=== PATIENT | female | born 1945 | race Caucasian/White ===

== ENCOUNTER 2020-05-19 14:10 | Emergency (ER) | payer MEDICARE ==
[~2020-05-19 14:10] MED LIST: HYDROCHLOROTHIA25 MG PO; LEVOTHYROXINE75 MCG PO; LIPITOR TAB 1010 MG PO; OMNICEF 300 MG300 MG PO; PRINIVIL20 MG PO; RANITIDINE HCL300 MG PO; SYMMETREL 100100 MG PO; VISTARIL25 MG PO
== END 2020-05-19 22:12 | disposition home or self-care (01) ==
LOC: ER1 14:10
DX: R51.9 Headache, unspecified (principal); M25.551 Pain in right hip; J45.909 Unspecified asthma, uncomplicated; Z88.8 Allergy status to other drugs, medicaments and biological substances; Z90.49 Acquired absence of other specified parts of digestive tract; Z91.041 Radiographic dye allergy status; W19.XXXA Unspecified fall, initial encounter
CPT/HCPCS: 70450; 72125; 99283

== ENCOUNTER 2020-06-06 08:55 | Emergency (ER) | payer MEDICARE ==
[2020-06-06] MEDS ORDERED: HYDROCODON-ACE1 EAC4 PO (13:23)
[2020-06-06] MEDS ORDERED: MACROBID 100 M100 M1 PO (13:28)
== END 2020-06-06 13:35 | disposition home or self-care (01) ==
LOC: ER1 08:55
DX: S32.019A Unspecified fracture of first lumbar vertebra, initial encounter for closed fracture (principal); S70.01XA Contusion of right hip, initial encounter; N39.0 Urinary tract infection, site not specified; I10 Essential (primary) hypertension; J44.9 Chronic obstructive pulmonary disease, unspecified; F17.200 Nicotine dependence, unspecified, uncomplicated; Z88.1 Allergy status to other antibiotic agents; Z88.5 Allergy status to narcotic agent; W18.30XA Fall on same level, unspecified, initial encounter; Y92.000 Kitchen of unspecified non-institutional (private) residence as the place of occurrence of the external cause
CPT/HCPCS: 72131; 73502; 81001; 93005; 99284

== ENCOUNTER 2020-06-17 22:20 | Emergency (ER) | payer MEDICARE ==
[~2020-06-17 22:20] MED LIST changes: +HYDROCODON-ACE1 EAC4 PO; +MACROBID 100 M100 M1 PO
[2020-06-17 23:59] LABS: HEMOGLOBIN 14.9 gm/dl (12.3-15.3); RED BLOOD COUNT 4.85 M/UL (4.00-5.10); WHITE BLOOD COUNT 7.9 K/UL (4.5-11.0)
[2020-06-18 00:30] LABS: BUN/CREATININE RATIO 24 (0-10)
[2020-06-18] MEDS ORDERED: BENTYL 20MG TAB20 MG PO (02:50)
[2020-06-18] MEDS ORDERED: ZOFRAN ODT 4 MG4 MG PO (02:50)
== END 2020-06-18 04:20 | disposition home or self-care (01) ==
LOC: ER1 22:20
PROVIDERS: Physician Assistant
DX: R10.84 Generalized abdominal pain (principal); R11.2 Nausea with vomiting, unspecified; I10 Essential (primary) hypertension; F17.210 Nicotine dependence, cigarettes, uncomplicated; Z90.49 Acquired absence of other specified parts of digestive tract
CPT/HCPCS: 51702; 80053; 81001; 82150; 82550; 82553; 83605; 83690; 84484; 85025; 96374; 96375; 99284; J2270; J2405; J7030

== ENCOUNTER 2020-06-27 20:20 | Emergency (ER) | payer MEDICARE ==
[~2020-06-27 20:20] MED LIST changes: +BENTYL 20MG TAB20 MG PO; +ZOFRAN ODT 4 MG4 MG PO
[2020-06-27 20:40] LABS: HEMOGLOBIN 15.7 gm/dl (12.3-15.3); RED BLOOD COUNT 5.1 M/UL (4.00-5.10); WHITE BLOOD COUNT 9.7 K/UL (4.5-11.0)
[2020-06-27 21:08] LABS: BUN/CREATININE RATIO 20 (0-10)
[2020-06-28] MEDS ORDERED: MEDI-MECLIZINE25 MG PO (01:41)
[2020-06-28] MEDS ORDERED: FLAGYL500 MG PO (01:41)
[2020-06-28] MEDS ORDERED: ZOFRAN ODT 4 MG4 MG PO (01:41)
== END 2020-06-28 02:11 | disposition home or self-care (01) ==
LOC: ER1 20:20
PROVIDERS: Urology
DX: K52.9 Noninfective gastroenteritis and colitis, unspecified (principal); R42 Dizziness and giddiness; I10 Essential (primary) hypertension; Z20.822 Contact with and (suspected) exposure to COVID-19
CPT/HCPCS: 0240U; 70450; 71045; 80053; 81001; 82550; 82553; 83605; 83690; 83735; 83874; 84484; 85025; 93005; 96374; 96376; 99285; J2405

== ENCOUNTER → 2020-07-29 | Outpatient (CLI) | payer MEDICARE ==
[~2020-07-29] MED LIST changes: +FLAGYL500 MG PO; +MEDI-MECLIZINE25 MG PO
== END ==
LOC: KOH-I 11:24
DX: M79.606 Pain in leg, unspecified (principal); M79.602 Pain in left arm; M19.042 Primary osteoarthritis, left hand
CPT/HCPCS: 73090; 73130; 73590

== ENCOUNTER → 2021-08-03 | Outpatient (CLI) | payer MEDICARE | LOC: EMI 15:25 | DX: S32.009A Unspecified fracture of unspecified lumbar vertebra, initial encounter for closed fracture (principal); W19.XXXA Unspecified fall, initial encounter; R93.7 Abnormal findings on diagnostic imaging of other parts of musculoskeletal system; M51.86 Other intervertebral disc disorders, lumbar region; M48.061 Spinal stenosis, lumbar region without neurogenic claudication | CPT/HCPCS: 72148 ==